=== PATIENT | male | born 1990 | race Caucasian/White ===

== ENCOUNTER 2023-01-04 11:16 | Emergency (ER) | payer SELFPAY ==
[2023-01-04] MEDS ORDERED: Bacitracin Oint 1 GM U/D Packet TOP ONE (12:10)
[2023-01-04] MEDS ORDERED: Diphtheria,Pertussis(Acell),Tetanus Vaccine 0.5 ML Syringe IM ONE (12:10)
== END 2023-01-04 13:03 | disposition home or self-care (01) ==
LOC: JP.ED 11:16
DX: S41.112A Laceration without foreign body of left upper arm, initial encounter (principal); Z72.0 Tobacco use; Z23 Encounter for immunization; W26.0XXA Contact with knife, initial encounter
CPT/HCPCS: 12002; 90471; 90715; 99282-25